=== PATIENT | male | born 1990 | race African-American/Black ===

== ENCOUNTER 2017-05-15 07:58 | Emergency (ER) | payer OTHER ==
[~2017-05-15] VITALS: Ht 170.2 cm; Wt 99.8 kg
[~2017-05-15 07:58] MED LIST: AMOXICILLIN 50500 M1 PO; MUCINEX D TABL1 EAC1 PO
[2017-05-15 09:45] VITALS: BP 122/81
== END 2017-05-15 09:47 | disposition home or self-care (01) ==
LOC: ER 07:58
DX: J02.9 Acute pharyngitis, unspecified (principal); F17.200 Nicotine dependence, unspecified, uncomplicated; F12.10 Cannabis abuse, uncomplicated